=== PATIENT | female | born 1990 | race African-American/Black ===

== ENCOUNTER 2021-04-13 08:56 | Emergency (ER) | payer OTHER, MEDICAID ==
[~2021-04-13] VITALS: Ht 162.6 cm; Wt 131.5 kg
[~2021-04-13 08:56] MED LIST: ACETAMINOPHEN-1 EAC1 PO; ALBUTEROL INH; CIPRO500 MG PO; MULTIVITAMINS1 EAC7 PO; NAPROSYN500 MG PO; ONDANSETRON HCL4 M2 PO; PYRIDIUM200 MG PO; TOBRAMYCIN SULFA5 ML OPHTHALMIC
[2021-04-13] MEDS ORDERED: ATORVASTATIN PO (09:19)
[2021-04-13] MEDS ORDERED: SIMVASTATIN80 MG PO (09:20)
[2021-04-13] MEDS ORDERED: FUROSEMIDE 20 M20 MG PO (09:20)
[2021-04-13 11:39] VITALS: BP 173/89
== END 2021-04-13 11:39 | disposition home or self-care (01) ==
LOC: M.ERS 08:56
DX: R51.9 Headache, unspecified (principal); Z20.822 Contact with and (suspected) exposure to COVID-19; J45.909 Unspecified asthma, uncomplicated; Z88.1 Allergy status to other antibiotic agents; Z79.899 Other long term (current) drug therapy